=== PATIENT | male | born 1980 | race Caucasian/White ===

== ENCOUNTER 2017-07-19 07:15 | Day surgery (SDC) | payer BC, OTHER ==
[2017-07-19] MEDS ORDERED: Midazolam HCl 2 mg/2 ml Vial ONE (07:25)
[2017-07-19] MEDS ORDERED: Fentanyl 100 MCG/2 ML VIAL ONE (07:25)
--- NOTE | 2017-07-19 08:16 | HP ---
CHIEF COMPLAINT: Right lower quadrant pain. HISTORY OF PRESENT ILLNESS: This is a 37-year-old male who presents with a history of pain in his ri t lower quadrant for 2 days, described as sharp, 8/10, does not radiate, associated with nausea, no vomiting, no change in stools. No history of chronic abdominal pain or inflammatory bowel disease. He was seen at an outside institution where CT scan reveals acute appendicitis. PAST MEDICAL HISTORY: He denies. PAST SURGICAL HISTORY: He denies. MEDICINES TAKEN DAILY: None. ALLERGIES: No known drug allergies. SOCIAL HISTORY: No smoking, alcohol or other drugs. REVIEW OF SYSTEMS: Ten system review of systems otherwise negative unless described above. PHYSICAL EXAMINATION: VITAL SIGNS: He is afebrile at 97.4, pulse 70, breathing at 16. Blood pressure 176/96, pulse ox 97% on room air. HEENT: Sclerae are anicteric. Oropharynx clear. NECK: No lymphadenopathy. CHEST: Clear. HEART: Regular rate and rhythm. ABDOMEN: Soft, tender right lower quadrant with localized guarding, no rebound, no abdominal inguina l hernias. EXTREMITIES: No ischemia or edema to extremities. LABORATORY AND X-RAY FINDINGS: CT scan from outside institution reveals acute appendicitis without e vidence of perforation. Bilateral fat containing inguinal hernias. ASSESSMENT: 1. Acute appendicitis. 2. Bilateral asymptomatic inguinal hernias. PLAN: Laparoscopic appendectomy. Risks, benefits, alternatives discussed. He gives consent. We wi ll do this today.
[2017-07-19] MEDS ORDERED: Bupivacaine/Epinephrine 0.25% 30 ML VIAL ONE (08:18)
[2017-07-19] MEDS ORDERED: Dexamethasone 20 MG/5 ML VIAL ONE ×2 (11:00)
[2017-07-19] MEDS ORDERED: Ketorolac Tromethamine 30 MG/ML VIAL ONE (11:00)
[2017-07-19] MEDS ORDERED: Succinylcholine Chloride 20 MG/ML 10 ml SYRINGE FS ONE (11:00)
[2017-07-19] MEDS ORDERED: Glycopyrrolate 0.2 MG/ML 5 ML SYRINGE ONE (11:00)
[2017-07-19] MEDS ORDERED: Ondansetron HCl/PF 4 MG/2 ML Vial ONE (11:00)
[2017-07-19] MEDS ORDERED: PROPOFOL 200 MG/20 ML VIAL ONE (11:00)
[2017-07-19] MEDS ORDERED: Lidocaine 1% PF 5 ML VIAL ONE (11:00)
--- NOTE | 2017-07-20 15:02 | OP ---
DATE OF PROCEDURE: 07/19/2017 PREOPERATIVE DIAGNOSIS: Acute appendicitis. POSTOPERATIVE DIAGNOSIS: Acute appendicitis. PROCEDURE: Laparoscopic appendectomy. SURGEON: Syd Lim M.D. ANESTHESIA: General. ESTIMATED BLOOD LOSS: None. COMPLICATIONS: None. SPECIMEN: Appendix. FINDINGS: Appendicitis. TECHNIQUE: The patient was taken to the operating room and placed supine on the table. After genera l anesthetic was obtained, a Ponce was placed. The abdomen was shaved, prepped, and draped in a ster ile fashion. A curved incision made below the umbilicus. Cautery was used to dissect down to and sc ore the fascia. Abdominal cavity was entered bluntly using a Linda clamp. Holding stitch of PDS josé miguel kenya on each side of the fascia. Chapman trocar was placed. High flow pneumoperitoneum was obtained. A suprapubic 5 mm port left lower quadrant, 5 mm port placed under direct visualization. Cecum is r olled over to reveal acute appendicitis. A small window was made at the base of the appendix and mes oappendix. Laparoscopic stapler fired across the base of the appendix. A vascular reload fired acro ss the mesoappendix. Appendix was placed in an Endo catch bag and brought out through the Chapman. T here was no bleeding on the staple lines. The right lower quadrant and pelvis was irrigated. There was no evidence of purulence or injury to any intraabdominal structures. The appendix was placed in an Endo catch bag and brought out through the Mason. All port sites were infiltrating local anesthe tic. All ports were removed and visualization and prep was let down. PDS used to close the fascia b elow the umbilicus. All incisions were irrigated and closed using 4-0 Monocryl and Dermabond. The p atient was en route to recovery in stable condition. All instrument counts, needle counts, lap count s were correct.
== END 2017-07-19 10:47 | disposition home or self-care (01) ==
LOC: SDC 07:15
PROVIDERS: ATTEND Surgery
PROC: 0DTJ4ZZ Resection of Appendix, Percutaneous Endoscopic Approach (ICD-10-PCS; principal; 2017-07-19)
DX: K35.80 Unspecified acute appendicitis (principal); K40.20 Bilateral inguinal hernia, without obstruction or gangrene, not specified as recurrent
CPT/HCPCS: 88304; J1100; J1885; J2001; J2250; J2405; J2704; J3010

== ENCOUNTER 2023-03-25 20:07 | Emergency (ER) | payer BC, SELFPAY ==
[2023-03-25] MEDS ORDERED: Ibuprofen 800 MG TAB ONE (20:53)
[2023-03-25 21:29] LABS: SARS-CoV-2 NAA Rapid Test Not Detected (NotDetected)
== END 2023-03-25 21:06 | disposition home or self-care (01) ==
LOC: ERS 20:07
DX: J06.9 Acute upper respiratory infection, unspecified (principal); F17.210 Nicotine dependence, cigarettes, uncomplicated; I10 Essential (primary) hypertension; Z20.822 Contact with and (suspected) exposure to COVID-19
CPT/HCPCS: 99283